=== PATIENT | female | born 1955 | race Caucasian/White ===

== ENCOUNTER → 2018-01-07 | Outpatient (REF) ==
[~2018-01-07] MED LIST: ACE500 PO; AMOX500T10 PO; ASC500 PO; ASPI-715 PO; BLAC40CA3 PO; CALC-547 PO; CLAR-1 PO; DOCU-202 PO; ESTR42.5 VG; FERR325C2 PO; IBU600 PO; IBU800 PO; IBUP-56 PO; IBUP600T22 PO; IBUP800T37 PO; MULT-1085 PO; MULT-1335 PO; MULT-16 PO; OMEG-11 PO; OMEG-24 PO; PANT20TA27 PO; PANT40TA65 PO; PER PO; PSYL283P7 PO; RAN150 PO; SENN-187 PO; SPIR50TA31 PO; VITA1CAP46 PO; [UNRECOGNIZED DRUG - CODE] PO; [UNRECOGNIZED DRUG - OTHER] PO
[2018-01-07 09:02] LABS: LDL CHOLESTEROL 126 mg/dl
== END ==
DX: Z02.9 Encounter for administrative examinations, unspecified (principal)

== ENCOUNTER → 2018-01-25 | Outpatient (CLI) | payer OTHER | LOC: LAB 08:28 | PROVIDERS: ATTEND Nurse Practitioner Family | DX: E55.9 Vitamin D deficiency, unspecified (principal); D51.0 Vitamin B12 deficiency anemia due to intrinsic factor deficiency | CPT/HCPCS: 36415; 82306; 82607 ==